=== PATIENT | male | born 1960 | race Caucasian/White ===

== ENCOUNTER 2016-11-27 12:15 | Emergency (ER) | payer OTHER ==
[~2016-11-27] VITALS: Ht 190.5 cm; Wt 100.9 kg
[2016-11-27 12:28] VITALS: BP 145/90; PULSE 87; RESP 14; TEMP 97.9; O2SAT 97
--- NOTE | 2016-11-27 13:12 | PD ---
HPI Chief Complaint: Musculoskeletal Complaint Time Seen by Provider: 12:58 Travel History International Travel<30 days: No Contact w/Intl Traveler<30days: No Traveled to known affect area: No History of Present Illness HPI 55-year-old male presents to the emergency room for evaluation of right wrist pain and swelling for the past week. Patient states he was holding onto a large horse's lead rope when the horse took off running. He did not let go of the rope and felt immediate pain in he right wrist on the ulnar side. Since then, he has had constant, dull ache of the right ulna. He has had not done anything or taken anything for his symptoms because he does not like to take medication. Patient has working through his pain. He states he got significantly worse today while pulling a lawnmower. Pain is exacerbated with any range of motion of the right wrist. States it now radiates up into his shoulder. Denies paresthesias. PFSH Past Medical History Cancer: No Cardiovascular Problems: No COPD: Yes Endocrine: No Genitourinary: No Musculoskeletal: No Neurologic: No Psychiatric: No Reproductive: No Respiratory: Yes Past Surgical History Other Surgery: Yes Social History Alcohol Use: Yes (4-5 BEERS DAILY) Tobacco Use: No Substance Use: No Allergies-Medications (Allergen,Severity, Reaction): Coded Allergies: No Known Allergies (Unverified , 11/27/16) Reported Meds & Prescriptions Reported Meds & Active Scripts Active No Active Prescriptions or Reported Medications Review of Systems Except as stated in HPI: all other systems reviewed are Neg Physical Exam Narrative GENERAL: Well-nourished, well-developed male in no acute distress. Afebrile. Ambulatory. SKIN: Focused skin assessment warm/dry. No significant erythema or ecchymosis. HEAD: Normocephalic. EYES: No scleral icterus. No injection or drainage. NECK: Supple, trachea midline. No JVD or lymphadenopathy. CARDIOVASCULAR: Regular rate and rhythm without murmurs, gallops, or rubs. RESPIRATORY: Breath sounds equal bilaterally. No accessory muscle use. MUSCULOSKELETAL: No cyanosis. 2+ radial pulse. Very mild edema of the right wrist. Mild tenderness to palpation of the ulnar styloid. No snuffbox tenderness. Limited flexion and extension secondary to pain. Data Data Last Documented VS Vital Signs Date Time Temp Pulse Resp B/P (MAP) Pulse Ox O2 Delivery O2 Flow Rate FiO2 11/27/16 12:28 97.9 87 14 145/90 (108) 97 Room Air Orders Orders Wrist, Complete (Ccg9rhs) (11/27/16 ) Splint Or Brace Apply/Monitor (11/27/16 13:44) [facility] Medical Decision Making Medical Screen Exam Complete: Yes Emergency Medical Condition: Yes Medical Record Reviewed: Yes Differential Diagnosis Sprain, fracture, dislocation, strain Narrative Course 55-year-old male presents to the emergency room for evaluation of right wrist pain and swelling for the past week. States he came in today because he reinjured it. Pain is localized to the ulnar aspect and is not radiating up into her shoulder. Denies paresthesias. Right upper extremity is neurovascular intact with 2+ radial pulse. Radial, ulnar, and intact. Range of motion in wrist secondary to pain. Very mild tenderness to palpation of the ulnar styloid. X-ray is negative. Given mechanism of injury, this is wrist sprain. Patient placed in Velcro wrist splint and discharged with with instructions. Told to follow up with primary care physician or return for worsening symptoms. He understands and agrees to plan. Diagnosis Primary Impression: Right wrist sprain Qualified Codes: S63.501A - Unspecified sprain of right wrist, initial encounter Referrals: Primary Care Physician Additional Instructions: Rest and drink plenty of fluids. Use splint as needed for pain. Take ibuprofen with food as directed, as needed for pain. Apply ice to the affected area for 20 minutes at a time, as needed for pain and swelling. Follow-up with a primary care physician. Return to the emergency room for worsening symptoms. Scripts No Active Prescriptions or Reported Meds Disposition: 01 DISCHARGE HOME Condition: Stable Delisa Aggarwal Nov 27, 2016 13:12
--- NOTE | 2016-11-27 13:41 | RADRPT ---
EXAM DATE/TIME: 11/27/2016 13:09 [place] COMPARISON: No previous studies available for comparison. INDICATIONS : Right wrist pain when using lawn equipment today. MEDICAL HISTORY : Previous wrist injury SURGICAL HISTORY : None. ENCOUNTER: Initial ACUITY: 1 day PAIN SCORE: 10/10 LOCATION: Right medial wrist FINDINGS: Three view examination of the right wrist demonstrates soft tissue swelling without dislocation, or f racture. The carpal bones are in normal alignment. The joint spaces are maintained. Bony mineraliz ation is normal. CONCLUSION: Soft tissue swelling without fracture. Kee Bejarano MD on November 27, 2016 at 13:39 Board Certified Radiologist. This report was verified electronically.
== END 2016-11-27 14:06 | disposition home or self-care (01) ==
LOC: PHED 12:15 → PHEFT 14:06
DX: S63.501A Unspecified sprain of right wrist, initial encounter (principal); X50.9XXA Other and unspecified overexertion or strenuous movements or postures, initial encounter; Y93.K9 Activity, other involving animal care
CPT/HCPCS: 73110; 99283; L3908